=== PATIENT | female | born 1990 | race Caucasian/White ===

== ENCOUNTER 2019-02-05 12:40 | Emergency (ER) | payer OTHER ==
[~2019-02-05] VITALS: Ht 144.8 cm; Wt 63.6 kg
[2019-02-05 13:03] VITALS: BP 110/68; TEMP 98
[2019-02-05 15:00] VITALS: PULSE 87
== END 2019-02-05 15:00 | disposition home or self-care (01) ==
LOC: COL.ER 12:40
DX: R45.851 Suicidal ideations (principal)

== ENCOUNTER 2019-02-28 18:40 | Emergency (ER) | payer OTHER ==
[~2019-02-28] VITALS: Ht 144.8 cm; Wt 42.0 kg
[2019-02-28 18:42] VITALS: BP 112/67; TEMP 97.3
[2019-02-28] MEDS ORDERED: AMOXICILLIN 50500 MG PO (19:10)
[2019-02-28 19:56] VITALS: PULSE 70
== END 2019-02-28 19:56 | disposition home or self-care (01) ==
LOC: COL.ER 18:40
DX: M27.3 Alveolitis of jaws (principal); J45.909 Unspecified asthma, uncomplicated

== ENCOUNTER 2019-03-31 20:40 | Emergency (ER) | payer OTHER ==
[~2019-03-31] VITALS: Ht 144.8 cm; Wt 44.1 kg
[~2019-03-31 20:40] MED LIST: AMOXICILLIN 50500 MG PO
== END 2019-03-31 21:55 | disposition left against medical advice (07) ==
LOC: COL.ER 20:40
DX: R11.2 Nausea with vomiting, unspecified (principal)